=== PATIENT | male | born 1955 | race Caucasian/White ===

== ENCOUNTER 2023-11-08 06:29 | Inpatient (IN) ==
--- NOTE | 2023-11-08 06:35 | Emergency Department Note ---
Impression & Plan Small bowel obstruction ADMIT ED Provider Note HPI: History obtained from patient. The patient is a 68-year-old gentleman who presents the emergency department with a chief complaint of lower abdominal pain. Patient started with pain last night around midnight and it progressively got worse throughout the night. Patient states he has had nausea but no vomiting. Patient states the pain is in his lower abdomen and in particular more on the left lower quadrant. On arrival here to the ED the patient arrives via EMS and was given morphine en route with good improvement in his pain. He still does exhibit some mild distress secondary to abdominal pain on arrival. Patient denies any chest pain or shortness of breath. Patient is hemodynamically stable on arrival. ROS: - Per HPI Differential Diagnosis: Small bowel obstruction, kidney stone, diverticulitis flare, acute appendicitis, acute cholecystitis, ischemic colitis, amongst other potential pathologies. *Outpatient medications and allergy history reviewed. PE: General: Alert, mild distress secondary to pain HEENT: Normocephalic, trachea midline Eyes: Extraocular eye movement is intact, no scleral erythema Pulmonary: Clear to auscultation bilaterally, no wheezing Cardio: Regular rate and rhythm GI: Abdomen is with moderate distention, there is diffuse tenderness to palpation : No suprapubic tenderness MSK: No evidence of trauma or malformation of the extremities, no edema Skin: No evidence of rash Neuro: Alert, no focal deficits Psychiatric: Cooperative INDEPENDENT INTERPRETATIONS: awake overnight monitor: (As interpreted by myself): - An order was placed for continuous cardiac monitoring - Patient was noted to be in sinus rhythm with a rate of 60 EKG: (As interpreted by myself): Rate: 44 Rhythm: Sinus bradycardia Intervals: Within normal limits ST changes: No ST elevation Time: 0647 Interventions provided in ED: -IV fluid bolus, IV morphine, IV Zofran Medical Decision Making: IV was established and lab work obtained, patient was placed on awake overnight monitor. Lab work shows no leukocytosis, hemoglobin is normal, platelet count is normal, CMP does not show any evidence of any critical findings. Lactic acid is normal, troponin is negative, EKG shows sinus bradycardia without any acute ischemic changes. Urinalysis shows trace ketones. CT imaging of the abdomen pelvis was obtained and shows evidence of what appears to be a closed-loop small bowel obstruction. I discussed these findings with on-call general surgery, Gilda Cox PA-C, and the patient was evaluated at the bedside. Patient was evaluated at the bedside eventually by Dr. Solo of general surgery, he was admitted to the surgery service for definitive care. Consultants/Discussions held with other healthcare providers: -Dr. Solo, general surgery Disposition discussion held by myself with: -Patient and family at the bedside Diagnosis: 1. Small bowel obstruction, acute, closed-loop 2. Abdominal pain, acute 3. Ketonuria, acute, trace Disposition: Admission to general surgery González Clemens DO Emergency Medicine Past Med/Surg History Problem List (Updated 11/08/23 @ 15:14 by González Clemens DO) Small bowel obstruction (Acute) Social History Smoking Status: Former smoker Second Hand Exposure: Yes; Do You Dip or Chew Tobacco: No; Hx Alcohol Use: No Hx Substance Use: No Preferred Language: [place] Islander Communication Ability: Effective Sericulture Teacher Required: No Beliefs That Will Affect Care: None Current Living Situation: Spouse Feels Safe at Home: Yes Safety Concerns: Feels Safe At This Time Assistive Devices: Glasses Allergies Allergies Allergy/AdvReac Type Severity Reaction Status Date / Time No Known Allergies Allergy Unverified 11/08/23 11:31 Home Meds Home Medications Medication Instructions Recorded Confirmed multivitamin 1 tab PO DAILY 11/08/23 11/08/23 Results & Data (ED) Vital Signs Vital Signs - 24 hr 11/08/23 06:34 11/08/23 06:44 11/08/23 07:00 Temperature 36.6 C Temperature Source Oral Pulse Rate 52 L 50 L Pulse Rate [Apical] Pulse Rate [Finger] Pulse Rate from SpO2 Sensor Pulse Rhythm Regular Pulse Rhythm [Apical] Pulse Rhythm [Finger] Pulse Strength Normal Pulse Strength [Finger] Respiratory Rate 18 Respiratory Effort / Characteristics Non-Labored Spontaneous Respiratory Depth Normal Respiratory Pattern Regular Blood Pressure 122/72 123/68 Blood Pressure [Left Arm] Blood Pressure [Right Arm] Blood Pressure Mean 88 101 Blood Pressure Mean [Left Arm] Blood Pressure Mean [Right Arm] Blood Pressure Position Sitting Blood Pressure Position [Left Arm] Blood Pressure Position [Right Arm] Pulse Oximetry 95 Oxygen Delivery Method Room Air Oxygen Flow Rate Sepsis Recent Fever Within 48 Hours No Sepsis New/Unexplained Change in Mental Status N/A Sepsis Action Taken by Nursing No Action Required 11/08/23 07:03 11/08/23 07:18 11/08/23 07:31 Temperature Temperature Source Pulse Rate 48 L 49 L Pulse Rate [Apical] Pulse Rate [Finger] Pulse Rate from SpO2 Sensor 47 L 49 L Pulse Rhythm Pulse Rhythm [Apical] Pulse Rhythm [Finger] Pulse Strength Pulse Strength [Finger] Respiratory Rate 15 13 Respiratory Effort / Characteristics Respiratory Depth Respiratory Pattern Blood Pressure 150/75 H Blood Pressure [Left Arm] Blood Pressure [Right Arm] Blood Pressure Mean 89 Blood Pressure Mean [Left Arm] Blood Pressure Mean [Right Arm] Blood Pressure Position Blood Pressure Position [Left Arm] Blood Pressure Position [Right Arm] Pulse Oximetry 95 97 Oxygen Delivery Method Oxygen Flow Rate Sepsis Recent Fever Within 48 Hours Sepsis New/Unexplained Change in Mental Status Sepsis Action Taken by Nursing 11/08/23 07:39 11/08/23 08:00 11/08/23 08:00 Temperature Temperature Source Pulse Rate 47 L 52 L Pulse Rate [Apical] Pulse Rate [Finger] Pulse Rate from SpO2 Sensor 48 L 52 L Pulse Rhythm Pulse Rhythm [Apical] Pulse Rhythm [Finger] Pulse Strength Pulse Strength [Finger] Respiratory Rate 13 13 Respiratory Effort / Characteristics Respiratory Depth Respiratory Pattern Blood Pressure 116/55 L Blood Pressure [Left Arm] Blood Pressure [Right Arm] Blood Pressure Mean 85 Blood Pressure Mean [Left Arm] Blood Pressure Mean [Right Arm] Blood Pressure Position Blood Pressure Position [Left Arm] Blood Pressure Position [Right Arm] Pulse Oximetry 99 95 Oxygen Delivery Method Oxygen Flow Rate Sepsis Recent Fever Within 48 Hours Sepsis New/Unexplained Change in Mental Status Sepsis Action Taken by Nursing 11/08/23 08:30 11/08/23 08:30 11/08/23 09:00 Temperature Temperature Source Pulse Rate 51 L Pulse Rate [Apical] Pulse Rate [Finger] Pulse Rate from SpO2 Sensor 50 L Pulse Rhythm Pulse Rhythm [Apical] Pulse Rhythm [Finger] Pulse Strength Pulse Strength [Finger] Respiratory Rate 15 Respiratory Effort / Characteristics Respiratory Depth Respiratory Pattern Blood Pressure 132/63 146/72 H Blood Pressure [Left Arm] Blood Pressure [Right Arm] Blood Pressure Mean 102 76 Blood Pressure Mean [Left Arm] Blood Pressure Mean [Right Arm] Blood Pressure Position Blood Pressure Position [Left Arm] Blood Pressure Position [Right Arm] Pulse Oximetry 100 Oxygen Delivery Method Oxygen Flow Rate Sepsis Recent Fever Within 48 Hours Sepsis New/Unexplained Change in Mental Status Sepsis Action Taken by Nursing 11/08/23 09:00 11/08/23 09:45 11/08/23 10:00 Temperature Temperature Source Pulse Rate 52 L 49 L Pulse Rate [Apical] Pulse Rate [Finger] Pulse Rate from SpO2 Sensor Pulse Rhythm Pulse Rhythm [Apical] Pulse Rhythm [Finger] Pulse Strength Pulse Strength [Finger] Respiratory Rate 18 21 Respiratory Effort / Characteristics Respiratory Depth Respiratory Pattern Blood Pressure 130/64 Blood Pressure [Left Arm] Blood Pressure [Right Arm] Blood Pressure Mean 80 Blood Pressure Mean [Left Arm] Blood Pressure Mean [Right Arm] Blood Pressure Position Blood Pressure Position [Left Arm] Blood Pressure Position [Right Arm] Pulse Oximetry 82 L 77 L Oxygen Delivery Method Oxygen Flow Rate Sepsis Recent Fever Within 48 Hours Sepsis New/Unexplained Change in Mental Status Sepsis Action Taken by Nursing 11/08/23 10:00 11/08/23 10:30 11/08/23 10:30 Temperature Temperature Source Pulse Rate 48 L 61 Pulse Rate [Apical] Pulse Rate [Finger] Pulse Rate from SpO2 Sensor 50 L 61 Pulse Rhythm Pulse Rhythm [Apical] Pulse Rhythm [Finger] Pulse Strength Pulse Strength [Finger] Respiratory Rate Respiratory Effort / Characteristics Respiratory Depth Respiratory Pattern Blood Pressure 98/64 L Blood Pressure [Left Arm] Blood Pressure [Right Arm] Blood Pressure Mean 68 Blood Pressure Mean [Left Arm] Blood Pressure Mean [Right Arm] Blood Pressure Position Blood Pressure Position [Left Arm] Blood Pressure Position [Right Arm] Pulse Oximetry 100 96 Oxygen Delivery Method Oxygen Flow Rate Sepsis Recent Fever Within 48 Hours Sepsis New/Unexplained Change in Mental Status Sepsis Action Taken by Nursing 11/08/23 11:20 11/08/23 11:31 11/08/23 12:56 Temperature 36.5 C 36.1 C L Temperature Source Oral Temporal Artery Scan Pulse Rate Pulse Rate [Apical] 71 Pulse Rate [Finger] 49 L 49 L Pulse Rate from SpO2 Sensor Pulse Rhythm Pulse Rhythm [Apical] Regular Pulse Rhythm [Finger] Regular Regular Pulse Strength Pulse Strength [Finger] Normal Normal Respiratory Rate 18 18 14 Respiratory Effort / Characteristics Non-Labored Non-Labored Spontaneous Non-Labored Spontaneous Respiratory Depth Normal Normal Normal Respiratory Pattern Regular Regular Regular Blood Pressure Blood Pressure [Left Arm] 150/87 H Blood Pressure [Right Arm] 147/75 H 147/75 H Blood Pressure Mean Blood Pressure Mean [Left Arm] 108 Blood Pressure Mean [Right Arm] 99 99 Blood Pressure Position Blood Pressure Position [Left Arm] Semi-fowlers Blood Pressure Position [Right Arm] Lying Sitting Pulse Oximetry 94 94 100 Oxygen Delivery Method Room Air Room Air Oxymask Oxygen Flow Rate 2 Sepsis Recent Fever Within 48 Hours Sepsis New/Unexplained Change in Mental Status Sepsis Action Taken by Nursing Laboratory Data 11/08/23 06:35 11/08/23 06:35 Lab Results 11/08/23 11/08/23 11/08/23 Range/Units 06:35 06:45 08:35 WBC 7.05 (4.8-10.8) K/ul RBC 4.81 (4.70-6.10) M/uL Hgb 14.5 (14.0-18.0) g/dl Hct 42.9 (42.0-52.0) % MCV 89.2 (80.0-100.0) fL MCH 30.1 (25.0-34.0) pg MCHC 33.8 (32.0-36.0) g/dL RDW Std Deviation 39.9 (36.4-46.3) fL RDW Coeff of Anna 12.2 (11.5-14.5) % Plt Count 189 (130-400) K/uL MPV 9.7 (9.4-12.4) fL Immature Gran % (Auto) 0.4 % Neut % (Auto) 77.7 % Lymph % (Auto) 14.5 % Centre % (Auto) 6.4 % Eos % (Auto) 0.4 % Baso % (Auto) 0.6 % Neut # (Auto) 5.48 (1.40-6.50) K/uL Lymph # (Auto) 1.02 L (1.20-3.40) K/uL Centre # (Auto) 0.45 (0.11-0.59) K/uL Eos # (Auto) 0.03 (0.00-0.50) K/uL Baso # (Auto) 0.04 (0.00-0.20) K/uL Immature Gran # (Auto) 0.03 (0.01-0.20) K/uL PT 10.8 (9.0-12.0) Seconds INR 1.0 (0.9-1.1) Sodium 136 (136-145) mmol/L Potassium 3.8 (3.5-5.1) mmol/L Chloride 106 (98-107) mmol/L Carbon Dioxide 25 (21-32) mmol/L Anion Gap 5 (3-11) BUN 26 H (6-23) mg/dl Creatinine 0.84 (0.6-1.4) mg/dl Est Cr Clr Drug Dosing 70.5 ml/min Est GFR ( Amer) 104.3 ml/min Est GFR (Non-Af Amer) 90.0 ml/min BUN/Creatinine Ratio 31.0 H (10-20) Glucose 116 H (70-99(Fasting)) mg/dl Lactate 1.2 (0.4-2.0) mmol/L Calcium 8.6 (8.6-10.3) mg/dl Total Bilirubin 0.7 (0.2-1.0) mg/dl AST 26 (13-39) U/L ALT 17 (7-52) U/L Alkaline Phosphatase 63 (34-104) U/L Troponin I High Sens 3.8 (0-20) pg/ml Total Protein 6.8 (6.0-8.3) gm/dl Albumin 3.8 (3.4-5.0) gm/dl Globulin 3.0 (2.5-4.0) gm/dl Albumin/Globulin Ratio 1.3 (0.9-2) Lipase 17 (11-82) U/L Urine Color Yellow Urine Appearance Clear (Clear) Urine pH 8.0 H (4.5-7.5) Ur Specific [place] 1.013 (1.000-1.030) Urine Protein Negative (Negative) Urine Glucose (UA) Negative (Negative) Urine Ketones Trace H (Negative) Urine Blood Negative (Negative) Urine Nitrite Negative (Negative) Urine Bilirubin Negative (Negative) Urine Urobilinogen Negative (Negative) Ur Leukocyte Esterase Negative (Negative) Administered Medications Lactated Ringer's (Lr) 1,000 mls @ 125 mls/hr IV .Q8H ARPAN Stop: 12/08/23 14:06 Last Admin: 11/08/23 14:15 Dose: 125 mls/hr Documented By: ADRIEL Acetaminophen (Ofirmev) 1,000 mg in 100 mls @ 400 mls/hr IV Q8H ARPAN Stop: 11/11/23 14:06 Last Infusion: 11/08/23 14:31 Dose: Infused Documented By: Admin: 11/08/23 14:15 Dose: 400 mls/hr Documented By: LMM Discontinued Medications Bupivacaine HCl (Bupivacaine 0.5 % 5 Mg/1 Ml Mpf 30ml Vial) Confirm Administered Dose 30 ml .ROUTE .STK-MED ONE Stop: 11/08/23 10:41 Last Admin: 11/08/23 12:40 Dose: 30 ml Documented By: ROSALES Bupivacaine Liposome (Bupivacaine Liposome 1.3% 133 Mg/10 Ml Vial) 133 mg INFIL ONE ONE Stop: 11/08/23 12:46 Last Admin: 11/08/23 12:45 Dose: 133 mg Documented By: ROSALES Sodium Chloride (Nss) 500 mls @ 999 mls/hr IV .Q31M STA Stop: 11/08/23 07:03 Last Infusion: 11/08/23 07:30 Dose: Infused Documented By: Admin: 11/08/23 06:45 Dose: 999 mls/hr Documented By: ZEE Sodium Chloride (Nss) 1,000 mls @ 999 mls/hr IV .Q1H1M ONE Stop: 11/08/23 09:27 Last Infusion: 11/08/23 14:13 Dose: Infused Documented By: Admin: 11/08/23 08:37 Dose: 999 mls/hr Documented By: JOCELYNE Cefoxitin Sodium (Mefoxin) 2,000 mg in 60 mls @ 100 mls/hr IV NOW STA Stop: 11/08/23 11:28 Last Infusion: 11/08/23 14:12 Dose: Infused Documented By: Admin: 11/08/23 11:49 Dose: 100 mls/hr Documented By: FRANK Ioversol (Optiray 320 100ml) 94 ml IV ONCE ONE Stop: 11/08/23 07:45 Last Admin: 11/08/23 07:45 Dose: 94 ml Documented By: EULALIO Morphine Sulfate (Morphine Sulfate 4 Mg/Ml 1 Ml Carp\Vial) 4 mg IV NOW STA Stop: 11/08/23 07:24 Last Admin: 11/08/23 07:36 Dose: 4 mg Documented By: JOCELYNE Morphine Sulfate (Morphine Sulfate 4 Mg/Ml 1 Ml Carp\Vial) 4 mg IV NOW STA Stop: 11/08/23 08:40 Last Admin: 11/08/23 08:38 Dose: 4 mg Documented By: JOCELYNE Imaging Data Radiologist's Impression: Abdomen/Pelvis CT 11/08/23 06:[address] WITH IV CONTRAST CT DOSE: 550.5 mGy.cm HISTORY: LLQ pain TECHNIQUE: Multiaxial CT images of the abdomen and pelvis were performed following the use of intravenous contrast. A dose lowering technique was utilized adhering to the principles of ALARA. COMPARISON STUDY: None. FINDINGS: Mild dependent changes seen within the lung bases. No pneumoperitoneum. No pneumatosis. No acute fractures identified. A 7 mm hypodense lesion within the right hepatic dome is technically too small to characterize but favors a cyst. The gallbladder, pancreas, and left adrenal gland are unremarkable. There is an 8 mm hypodense right adrenal gland nodule. This is too small to characteristically favors an adenoma. There are few punctate calcified granulomas within the spleen. The right kidney enhances normally. There are few subcentimeter hypodense left renal lesions measuring up to 9 mm. These are technically too small to characterize but favor cysts. No hydronephrosis. The main portal vein is patent. There is a left retroaortic renal vein. Normal caliber abdominal aorta. No retroperitoneal or pelvic lymphadenopathy. Trace pelvic free fluid. The bladder is unremarkable. The prostate gland is mildly enlarged. [id number] fecal retention. Normal appendix. Multiple dilated gas and fluid-filled loops of small bowel in the mid to lower abdomen which measure up to 3.3 cm in diameter. There is a transition point within the left lower quadrant on image 210. Therefore, this is consistent with a small bowel obstruction. There may be a second transition point within the distended proximal loop of small bowel with surrounding mesenteric edema within the left lower quadrant. The second area of transition point is also seen on image 202 anteriorly. Therefore, this raises the possibility of a closed loop type obstruction. IMPRESSION: 1. Small bowel obstruction as described above. There appears to be both proximal and distal transition points within the dilated loops of small bowel at the left lower quadrant with surrounding mesenteric edema. Therefore, this is concerning for a closed loop type small bowel obstruction. Urgent surgical consultation recommended. 2. Additional findings as described above. ACT 112: Negative or not required by law. Electronically signed by: Nader Eason M.D. 11/08/2023 8:17 AM KUB X-Ray 11/08/23 10:37 KUB HISTORY: ng tube placement COMPARISON: None. FINDINGS: Dilated loops of small bowel consistent with the patient's known small bowel obstruction. Contrast within the urinary system. Nasogastric tube terminates in the distal esophagus. This should be advanced by approximately 10 cm. No renal calculi. No ureteral calculi. No pneumoperitoneum or pneumatosis. IMPRESSION: 1. Nasogastric tube terminates in the distal esophagus. This should be advanced by approximately 10 cm. 2. Small bowel structure pattern again noted. ACT 112: Negative or not required by law. Electronically signed by: Nader Eason M.D. 11/08/2023 11:50 AM Discharge Plan Visit Data Chief Complaint: Abdominal Pain Stated Complaint: Abdominal Pain ED Provider: González Clemens Discharge Problem: Small bowel obstruction Patient Disposition: Admitted As Inpatient Discharge Instructions Interventions: ED Discharge Assessment Last Done: 11/08/23 14:01
[2023-11-08] MEDS: SODIUM CHLORIDE 0.9% 500 ML IV STA (06:45)
[2023-11-08 06:59] LABS: Basophils # (auto) 0.04 K/uL (0.00-0.20); Basophils % (auto) 0.6 %; Eosinophils # (auto) 0.03 K/uL (0.00-0.50); Eosinophils % (auto) 0.4 %; Hematocrit (blood only) 42.9 % (42.0-52.0); Hemoglobin 14.5 g/dl (14.0-18.0); Immature Granulocytes # (auto) 0.03 K/uL (0.01-0.20); Immature Granulocytes % (auto) 0.4 %; Lymphocytes # (auto) 1.02 K/uL (1.20-3.40); Lymphocytes % (auto) 14.5 %; Mean Corpuscular Hemoglobin 30.1 pg (25.0-34.0); Mean Corpuscular Hgb Conc 33.8 g/dL (32.0-36.0); Mean Corpuscular Volume 89.2 fL (80.0-100.0); Mean Platelet Volume 9.7 fL (9.4-12.4); Monocytes # (auto) 0.45 K/uL (0.11-0.59); Monocytes % (auto) 6.4 %; Neutrophils # (auto) 5.48 K/uL (1.40-6.50); Neutrophils % (auto) 77.7 %; Platelet Count 189 K/uL (130-400); Prothrombin Time 10.8 Seconds (9.0-12.0); RDW Coefficient of Variation 12.2 % (11.5-14.5); RDW Standard Deviation 39.9 fL (36.4-46.3); Red Blood Count 4.81 M/uL (4.70-6.10); White Blood Count 7.05 K/ul (4.8-10.8)
[2023-11-08 07:12] LABS: Albumin Globulin Ratio 1.3 (0.9-2); Albumin Level 3.8 gm/dl (3.4-5.0); Bilirubin,Total 0.7 mg/dl (0.2-1.0); Calcium 8.6 mg/dl (8.6-10.3); Creatinine Clr Calc Pharmacy 70.5 ml/min; Est GFR (African American) 104.3 ml/min; Potassium 3.8 mmol/L (3.5-5.1); Total Protein 6.8 gm/dl (6.0-8.3)
[2023-11-08 07:16] LABS: Troponin I High Sensitivity 3.8 pg/ml (0-20)
[2023-11-08] MEDS: MoRPHine SULFATE 4 MG/ML 1 ML CARP\\VIAL IV STA ×2 (07:36→08:38)
[2023-11-08] MEDS: OPTIRAY 320 100ml IV ONE (07:45)
[2023-11-08 08:06] LABS: Appearance Urine Clear (Clear); Bilirubin Urine Negative (Negative); Blood Urine Negative (Negative); Color Urine Yellow; Glucose Urine UA Negative (Negative); Ketones Urine Trace (Negative); Leukocyte Esterase Urine Negative (Negative); Nitrite Urine Negative (Negative); Protein Urine Negative (Negative); Specific Gravity Urine 1.013 (1.000-1.030); Urobilinogen Urine Negative (Negative)
--- NOTE | 2023-11-08 08:19 | CT Scan Report ---
ABDOMEN AND PELVIS CT WITH IV CONTRAST CT DOSE: 550.5 mGy.cm HISTORY: LLQ pain TECHNIQUE: Multiaxial CT images of the abdomen and pelvis were performed following the use of intrave nous contrast. A dose lowering technique was utilized adhering to the principles of ALARA. COMPARISON STUDY: None. FINDINGS: Mild dependent changes seen within the lung bases. No pneumoperitoneum. No pneumatosis. No acute fractures identified. A 7 mm hypodense lesion within the right hepatic dome is technically too small to characterize but favors a cyst. The gallbladder, pancreas, and left adrenal gland are unrema rkable. There is an 8 mm hypodense right adrenal gland nodule. This is too small to characteristicall y favors an adenoma. There are few punctate calcified granulomas within the spleen. The right kidney enhances normally. There are few subcentimeter hypodense left renal lesions measuring up to 9 mm. The se are technically too small to characterize but favor cysts. No hydronephrosis. The main portal vein is patent. There is a left retroaortic renal vein. Normal caliber abdominal aorta. No retroperitonea l or pelvic lymphadenopathy. Trace pelvic free fluid. The bladder is unremarkable. The prostate gland is mildly enlarged. Lrkr-[id number] fecal retention. Normal appendix. Multiple dilated gas and flui d-filled loops of small bowel in the mid to lower abdomen which measure up to 3.3 cm in diameter. The re is a transition point within the left lower quadrant on image 210. Therefore, this is consistent w ith a small bowel obstruction. There may be a second transition point within the distended proximal l oop of small bowel with surrounding mesenteric edema within the left lower quadrant. The second area of transition point is also seen on image 202 anteriorly. Therefore, this raises the possibility of a closed loop type obstruction. IMPRESSION: 1. Small bowel obstruction as described above. There appears to be both proximal and distal transitio n points within the dilated loops of small bowel at the left lower quadrant with surrounding mesenter ic edema. Therefore, this is concerning for a closed loop type small bowel obstruction. Urgent surgic al consultation recommended. 2. Additional findings as described above. ACT 112: Negative or not required by law. Electronically signed by: Nader Eason M.D. 11/08/2023 8:17 AM
[2023-11-08] MEDS: SODIUM CHLORIDE 0.9% 1,000 ML IV ONE (08:37)
--- NOTE | 2023-11-08 09:36 | History & Physical Report ---
Date of Service November 08, 2023 Assessment & Plan (1) Small bowel obstruction: Plan: This is a 68y janes male with apparently no significant PMH who presents to the [facility] ED on 11/07 with complaints of acute onset severe abdominal pain. His pain started last night around midnight in generalized abdomen. This was associated with nausea, no vomiting. Due to the severity of his pain he presented to the ER for evaluation. A CT a/p was performed that revealed small bowel obstruction where there appears to be both proximal and distal transition points within the dilated loops of small bowel at the left lower quadrant with surrounding mesenteric edema. Therefore, this is concerning for a closed loop type small bowel obstruction. The patient denies any prior abdominal surgical history. He is not passing flatus. Denies anything to eat recently outside of some sips of water. In the ER his vital signs are stable, HRs 50s, BP stable, on room air. Labs show WBC 7, Hbg 14, lactate 1.2, Cr 0.8. On exam patient appear uncomfortable secondary to pain. Abdomen is non distended with generalized tenderness to palpation worse in the mid abdominal region. Emesis bag at bedside. Plan to keep patient NPO with IVF and IV pain medication. Will discuss with surgeon possibility of surgical intervention vs consideration for conservative management with bowel rest/pain&nausea control. Will follow up in short order for further recommendations. History of Present Illness Primary Care Provider: NO PCP This is a 68y janes male with apparently no significant PMH who presents to the [facility] ED on 11/07 with complaints of acute onset severe abdominal pain. His pain started last night around midnight in generalized abdomen. This was associated with nausea, no vomiting. Due to the severity of his pain, which he rated a 10/10 in severity at its worst, he presented to the ER for evaluation. A CT a/p was performed that revealed small bowel obstruction where there appears to be b oth proximal and distal transition points within the dilated loops of small bowel at the left lower quadrant with surrounding mesenteric edema. Therefore, this is concerning for a closed loop type small bowel obstruction. The patient denies any prior abdominal surgical history. He is not passing flatus. Denies anything to eat recently outside of some sips of water. BMs normally regular. Allergies Allergy/AdvReac Type Severity Reaction Status Date / Time No Known Allergies Allergy Unverified 11/08/23 10:05 Home Medications Medication Instructions Recorded Confirmed Type multivitamin 1 tab PO DAILY 11/08/23 11/08/23 History Past Med/Surg History Problem List (Updated 11/08/23 @ 09:31 by Gilda Cox PA-C) Small bowel obstruction Social History Smoking Status: Never smoker Preferred Language: Italian Feels Safe at Home: Yes Review of Systems Constitutional: no fever and no chills Respiratory: no dyspnea Cardiovascular: no chest pain Gastrointestinal: + abdominal pain and + nausea; no vomiti ng Physical Exam Physical Exam: awake, alert, appears uncomfortable secondary to pain, Constitutional: well nourished; + uncomfortable Respiratory: normal respiratory effort Gastrointestinal (Abdomen): Inspection/Auscultation: abdomen not distended Percussion/Palpation: + abdomen tender (generalized discomfort, worse across mid abdomen) and + guarding Results & Data Results & Data Vital Signs (Past 12 Hours) Vital Signs Temp Pulse Resp BP Pulse Ox O2 Del Method 11/08/23 08:30 51 L 15 100 11/08/23 08:30 132/63 11/08/23 08:00 52 L 13 95 11/08/23 08:00 116/55 L 11/08/23 07:39 47 L 13 99 11/08/23 07:31 150/75 H 11/08/23 07:18 49 L 13 97 11/08/23 07:03 48 L 15 95 11/08/23 07:00 123/68 11/08/23 06:44 50 L 11/08/23 06:34 97.9 F 52 L 18 122/72 95 Room Air Diagnostic Findings ABDOMEN AND PELVIS CT WITH IV CONTRAST CT DOSE: 550.5 mGy.cm HISTORY: LLQ pain TECHNIQUE: Multiaxial CT images of the abdomen and pelvis were performed following the use of intravenous contrast. A dose lowering technique was utilized adhering to the principles of ALARA. COMPARISON STUDY: None. FINDINGS: Mild dependent changes seen within the lung bases. No pneumoperitoneum. No pneumatosis. No acute fractures identified. A 7 mm hypodense lesion within the right hepatic dome is technically too small to characterize but favors a cyst. The gallbladder, pancreas, and left adrenal gland are unremarkable. There is an 8 mm hypodense right adrenal gland nodule. This is too small to characteristically favors an adenoma. There are few punctate calcified granulomas within the spleen. The right kidney enhances normally. There are few subcentimeter hypodense left renal lesions measuring up to 9 mm. These are technically too small to characterize but favor cysts. No hydronephrosis. The main portal vein is patent. There is a left retroaortic renal vein. Normal caliber abdominal aorta. No retroperitoneal or pelvic lympha denopathy. Trace pelvic free fluid. The bladder is unremarkable. The prostate gland is mildly enlarged. [id number] fecal retention. Normal appendix. Multiple dilated gas and fluid-filled loops of small bowel in the mid to lower abdomen which measure up to 3.3 cm in diameter. There is a transition point within the left lower quadrant on image 210. Therefore, this is consistent with a small bowel obstruction. There may be a second transition point within the distended proximal loop of small bowel with surrounding mesenteric edema within the left lower quadrant. The second area of transition point is also seen on image 202 anteriorly. Therefore, this raises the possibility of a closed loop type obstruction. IMPRESSION: 1. Small bowel obstruction as described above. There appears to be both proximal and distal transition points within the dilated loops of small bowel at the left lower quadrant with surrounding mesenteric edema. Therefore, this is concerning for a closed loop type small bowel obstruction. Urgent surgical consultation recommended. 2. Additional findings as described above. ACT 112: Negative or not required by law Electronically signed by: Nader Eason M.D. 11/08/2023 8:17 AM Supervising Physician Co-Signing Physician Notes Patient seen and examined, labs and imaging reviewed, agree with above. Sudden onset abdominal pain overnight. No prior abdominal surgery, trauma, or severe infections, but states he had a blockage in 1984. On exam afebrile stable vitals, abdomen tender to palpation diffusely, no guarding. Labs unremarkable. CT personally viewed and interpreted and agree with the assessment for possible closed-loop obstruction with edema of the bowel. Given his findings would recommend diagnostic laparoscopy. Plan for diagnostic laparoscopy, possible open, possible bowel resection Risk discussed to include but not limited to bleeding, infection, conversion open, damage to surrounding structures, need for future more extensive surgery, and the risk of anesthesia Appreciate medicine consultation as patient has not seen a provider in many years PG Care Time/CCT Total # of Minutes Spent Total Time Spent with Patient: Total time spent is greater than 50% in coordination of care (as documented) at patient's floor/unit and/or counseling patient: Coding Level of Care Code 34464 INT INP/OBS CARE 2MIN Diagnoses Small bowel obstruction K56.609
--- NOTE | 2023-11-08 10:34 | Hospitalist Consultation ---
Date of Consultation November 08, 2023 Assessment & Plan (1) Small bowel obstruction: Worsening periumbilical abdominal pain that developed around midnight on 11/06 A/P CT on arrival revealed a small bowel obstruction concerning for closed loop General Surgery consulted with plan to take the patient to the OR on 11/07 No prior abdominal surgeries or infections No recent injuries or trauma to the abdomen or pelvis No leukocytosis; afebrile Patient does not take any medications on a regular basis Revised cardiac risk index: 0 Pain control, fluid maintenance, DVT PPx, and perioperative antibiotics per the primary team Plan Agree with current medical management. [facility]: [facility] Plan is to take patient to OR on 11/07 and re-assess as needed/ Thank you for allowing us to precipitate in the care of this patient; please reach out with any questions or concerns. Medicine will sign off at this time. Supervising Physician Co-Signing Physician Notes I personally saw and examined the patient. I independently reviewed the labs, EKG, imaging, problem list, medication list, past medical history. I verified all good points and agree with Nader Caputo PA-C with the following exceptions and/or additions: No known medical problems or medications. Good baseline without any shortness of breath or chest pain on exertion. EKG with sinus bradycardia on admission but now RRR. HS RRR, no murmurs, Chest CTAB, Abdo distended, NG tube in place. No anticipated or current medical needs. We will sign off at this time. Please reach out to the medicine attending simulation engineer for any questions or further review of the patient if felt to be necessary. History of Present Illness Reason for Consultation: Medical management Requesting Physician: Dr. Austin Solo Attending Physician: Dr. Austin Solo History of Present Illness Parth is a pleasant 68-year-old male with unknown PMH. He presented for periumbilical abdominal pain that developed around midnight on 11/06. He describes the pain as intermittent, and worsening. He rates it 5/10 at present after receiving pain medicine in the ED; 10/10 at worst. He did not take any pain medicine prior to coming in today ED. No food since last night. No radiation of pain to the back, chest wall, or down the legs. He reports that sitting upright exacerbates the pain. Last BM was yesterday. He is unsure if he is still passing gas. Patient does not take medicine on a daily basis. No prior abdominal surgeries. He denies history of a small bowel obstruction, but his at the bedside does report that he had a bowel blockage or "congestion" back in 1984 that resolved without any sort of surgical intervention. No PMH of CHF, DM, GA, CVA, or HTN. No prior history of similar episodes of abdominal pain. No recent injuries or trauma to the abdomen or pelvis. He denies history of colonoscopy. No prior abdominal infections. He reports he has not seen a doctor in a very long time. He reports he has good exercise tolerance, and has no dyspnea on exertion when going up steps. No recent changes in exercise tolerance or chest pain with exertion. He denies smoking, tobacco use, or alcohol use. Patient reports he is amenable to surgery at time of consult. Patient's (Gilda) and eldest son (Jaren) are at the bedside and provide additional history. Patient is mildly hypotensive at 98/64 at time of consult; vitals otherwise stable. ED course: NSS 1000mL IV x 2 Morphine sulfate 4mg IV x 2 ROS: Patient endorses worsening umbilical abdominal pain. Patient denies fever, chills, night-sweats, chest pain, chest palpitations, SOB at rest or with exertion, cough, N/V/D, changes in urinary/bowel habits, or numbness/tingling in the arms or legs. Allergies Allergy/AdvReac Type Severity Reaction Status Date / Time No Known Allergies Allergy Unverified 11/08/23 11:31 Home Medications Medication Instructions Recorded Confirmed Type multivitamin 1 tab PO DAILY 11/08/23 11/08/23 History Patient History Social History Smoking Status: Former smoker Second Hand Exposure: Yes; Do You Dip or Chew Tobacco: No; Hx Alcohol Use: No Hx Substance Use: No Preferred Language: Wallisian Communication Ability: Effective Hedge Fund Accountant Required: No Beliefs That Will Affect Care: None Current Living Situation: Spouse Feels Safe at Home: Yes Safety Concerns: Feels Safe At This Time Assistive Devices: Glasses Review of Systems Review of Systems: See HPI above Physical Exam Physical Exam: General: no acute distress; lethargic; pleasant affect; NG tube in place and draining clear fluid; non-toxic appearing; frail appearing; cooperative; SpO2 96% on RA HEENT: normocephalic, atraumatic; no scleral icterus; PERRLA; vision and hearing grossly intact Neck: supple; no lymphadenopathy; trachea midline Skin: warm, dry without signs of tenting; no cyanosis; no rashes, bruising, lesions, or erythema noted CV: chest wall NTP; RRR; S1/S2 normal; no murmurs/rubs/gallops; pulses intact and symmetric at radial, DP, and PT Lungs: no acute respiratory distress; symmetrical chest wall expansion; clear breath sounds across all lung [place] w/o adventitious sounds; no wheezing ABD: Soft, mildly TTP in all 4 quadrants; BS present; no rebound/guarding; no distention; no rashes or bruising on the abdomen or flanks bilaterally MSK: no tics or fasciculations; no edema noted in the LEs b/l, nonerythematous Neuro: A&Ox3; normal mood and affect; fluent speech; no focal deficits; sensation grossly intact and symmetric in the LEs b/l Results & Data Results & Data Vital Signs (Past 12 Hours) Vital Signs Temp Pulse Resp BP Pulse Ox O2 Del Method 11/08/23 08:30 51 L 15 100 11/08/23 08:30 132/63 11/08/23 08:00 52 L 13 95 11/08/23 08:00 116/55 L 11/08/23 07:39 47 L 13 99 11/08/23 07:31 150/75 H 11/08/23 07:18 49 L 13 97 11/08/23 07:03 48 L 15 95 11/08/23 07:00 123/68 11/08/23 06:44 50 L 11/08/23 06:34 36.6 C 52 L 18 122/72 95 Room Air Laboratory Results Abnormal lab results 11/08/23 11/08/23 Range/Units 06:35 06:45 Lymph # (Auto) 1.02 L (1.20-3.40) K/uL BUN 26 H (6-23) mg/dl BUN/Creatinine Ratio 31.0 H (10-20) Glucose 116 H (70-99(Fasting)) mg/dl Urine pH 8.0 H (4.5-7.5) Urine Ketones Trace H (Negative) Diagnostic Findings Abdomen/Pelvis CT 11/08/23 06:[address] WITH IV CONTRAST CT DOSE: 550.5 mGy.cm HISTORY: LLQ pain TECHNIQUE: Multiaxial CT images of the abdomen and pelvis were performed following the use of intravenous contrast. A dose lowering technique was utilized adhering to the principles of ALARA. COMPARISON STUDY: None. FINDINGS: Mild dependent changes seen within the lung bases. No pneumoperitoneum. No pneumatosis. No acute fractures identified. A 7 mm hypodense lesion within the right hepatic dome is technically too small to characterize but favors a cyst. The gallbladder, pancreas, and left adrenal gland are unremarkable. There is an 8 mm hypodense right adrenal gland nodule. This is too small to characteristically favors an adenoma. There are few punctate calcified granulomas within the spleen. The right kidney enhances normally. There are few subcentimeter hypodense left renal lesions measuring up to 9 mm. These are technically too small to characterize but favor cysts. No hydronephrosis. The main portal vein is patent. There is a left retroaortic renal vein. Normal caliber abdominal aorta. No retroperitoneal or pelvic lymphadenopathy. Trace pelvic free fluid. The bladder is unremarkable. The prostate gland is mildly enlarged. [id number] fecal retention. Normal appendix. Multiple dilated gas and fluid-filled loops of small bowel in the mid to lower abdomen which measure up to 3.3 cm in diameter. There is a transition point within the left lower quadrant on image 210. Therefore, this is consistent with a small bowel obstruction. There may be a second transition point within the distended proximal loop of small bowel with surrounding mesenteric edema within the left lower quadrant. The second area of transition point is also seen on image 202 anteriorly. Therefore, this raises the possibility of a closed loop type obstruction. IMPRESSION: 1. Small bowel obstruction as described above. There appears to be both proximal and distal transition points within the dilated loops of small bowel at the left lower quadrant with surrounding mesenteric edema. Therefore, this is concerning for a closed loop type small bowel obstruction. Urgent surgical consultation recommended. 2. Additional findings as described above. ACT 112: Negative or not required by law. Electronically signed by: Nader Eason M.D. 11/08/2023 8:17 AM ECG Additional Comments: ECG revealed marked sinus bradycardia at 44 bpm; QTc 376 No prior EKGs for comparison PG Care Time/CCT Total # of Minutes Spent Total Time Spent with Patient: Total time spent is greater than 50% in coordination of care (as documented) at patient's floor/unit and/or counseling patient: [place] [address] IN/OBS CONSULT LVL 3,45M Patient Type New Medical Decision Making Moderate Complexity Diagnoses Small bowel obstruction K56.609
[2023-11-08] MEDS ORDERED: PROPOFOL IV EMULSION 10 MG/ML 20 ML VIAL IV ONE (10:38)
[2023-11-08] MEDS ORDERED: ROCURONIUM BROMIDE 10 MG/ML 5 ML VIAL IV ONE (10:38)
[2023-11-08] MEDS ORDERED: ONDANSETRON INJ 2 MG/ML 2 ML VIAL ONE (10:38)
[2023-11-08] MEDS ORDERED: LIDOCAINE 2% 2 ML VIAL/AMP(20MG/ML) INFIL ONE (10:38)
[2023-11-08] MEDS ORDERED: MIDAZOLAM HCL 1 MG/ML 2ML VIAL ONE (10:38)
[2023-11-08] MEDS ORDERED: fentaNYL citrate PF 100 MCG/2 ML VIAL ONE (10:38)
[2023-11-08] MEDS ORDERED: DEXAMETHASONE SOD INJ 4 MG/ML VIAL ONE (10:41)
--- NOTE | 2023-11-08 11:48 | Anesthesiology Consultation ---
Date of Service November 08, 2023 Assessment & Plan ASA ASA1E Proposed Anesthesia Anesthesia Type: General Risk / Benefits Reviewed With: PT / POA / Parent / Guardian, Accepts Plan and Informed Consent Obtained History Surgery Operation Date: 11/08/23 08:20 Proposed Procedures p Diagnostic Laparoscopy, Possible Open, Possible Bowel Resection - Austin Solo DO, FACS Height/Weight Height: 5 ft 4 in Weight: 68.6 kg Allergies Allergy/AdvReac Type Severity Reaction Status Date / Time No Known Allergies Allergy Unverified 11/08/23 11:31 Medications Home Medications Medication Instructions Recorded Confirmed Last Taken multivitamin 1 tab PO DAILY 11/08/23 11/08/23 11/07/23 NPO Date Last Intake of Fluids: 11/07/23 Time Last Intake of Fluids: 21:00 Date Last Intake of Solids: 11/07/23 Time Last Intake of Solids: 16:00 Exercise / Class Metabolic Activity II 4-5 Yardwork/Stairs/Walk up hill Past Anesthesia History No Hx of Anesthesia Complications and No Family Hx of Anesthesia Complications History of PONV No Hx of PONV and No Hx of Motion Sickness Social History Smoking Status: Former smoker Do You Dip or Chew Tobacco: No Hx Alcohol Use: No Hx Substance Use: No Review of Systems denies fever/cough/ colds/ chest pain/ SOB/ ELY denies ELY Physical Exam Vital Signs Last Vital Signs Temp 36.5 C 11/08/23 11:31 Pulse 49 L 11/08/23 11:31 Resp 18 11/08/23 11:31 BP 147/75 H 11/08/23 11:31 Pulse Ox 94 11/08/23 11:31 O2 Del Method Room Air 11/08/23 11:31 ENMT Mouth: no TMJ abnormality and no dentition abnormality Thyromental Distance: > or= 3.5 Finger Breadths Mallampati Class: II Neck + facial hair; neck extension not limited Respiratory normal respiratory effort; no respiratory distress Auscultation: lungs clear to auscultation bilaterally Cardiovascular Rate/Rhythm: regular rate and regular rhythm Neurologic moves all extremities Psychiatric Orientation: alert and oriented x 3 Testing Laboratory Results 11/08/23 06:35 11/08/23 06:35 PT 10.8 Seconds (9.0-12.0) 11/08/23 06:35 INR 1.0 (0.9-1.1) 11/08/23 06:35 Urine Color Yellow 11/08/23 06:45 Urine Appearance Clear (Clear) 11/08/23 06:45 Urine pH 8.0 (4.5-7.5) H 11/08/23 06:45 Ur Specific [place] 1.013 (1.000-1.030) 11/08/23 06:45 Urine Protein Negative (Negative) 11/08/23 06:45 Urine Glucose (UA) Negative (Negative) 11/08/23 06:45 Urine Ketones Trace (Negative) H 11/08/23 06:45 Urine Nitrite Negative (Negative) 11/08/23 06:45 Ur Leukocyte Esterase Negative (Negative) 11/08/23 06:45
[2023-11-08] MEDS: cefOXitin 2,000 MG/60 ML BAG IV STA (11:49)
--- NOTE | 2023-11-08 11:52 | XRay Report ---
KUB HISTORY: ng tube placement COMPARISON: None. FINDINGS: Dilated loops of small bowel consistent with the patient's known small bowel obstruction. C ontrast within the urinary system. Nasogastric tube terminates in the distal esophagus. This should b e advanced by approximately 10 cm. No renal calculi. No ureteral calculi. No pneumoperitoneum or pne umatosis. IMPRESSION: 1. Nasogastric tube terminates in the distal esophagus. This should be advanced by approximately 10 c m. 2. Small bowel structure pattern again noted. ACT 112: Negative or not required by law. Electronically signed by: Nader Eason M.D. 11/08/2023 11:50 AM
[2023-11-08] MEDS: BUPIVACAINE 0.5 % 5 MG/1 ML MPF 30ML VIAL ONE (12:40)
[2023-11-08] MEDS ORDERED: SUGAMMADEX SODIUM 200 MG/2 ML VIAL IV ONE (12:40)
[2023-11-08] MEDS: BUPIVACAINE LIPOSOME 1.3% 133 MG/10 ML VIAL INFIL ONE (12:45)
--- NOTE | 2023-11-08 12:49 | Operative Report ---
PG Post Operative Report Pre & Post Diagnosis Operation Date: 11/08/23 08:20 Pre-Op Diagnosis: Abdominal Pain, possible closed-loop small bowel obstruction Post-Op Diagnosis: Abdominal Pain, small bowel obstruction secondary to adhesions I identified the patient and participated in the time-out.: Yes Procedure Operation Date: 11/08/23 08:20 Actual Procedures p Diagnostic Laparoscopy(Not Applicable) - Austin Solo DO, FACS Surgeon Austin Solo DO, SWATHI Rn Chronic Gilda Cox Estimated Blood Loss 3 Findings Consistent with Post-Op Diagnosis Diagnostic laparoscopy performed. Single adhesion in left mid abdomen causing partial small bowel obstruction. This was secondary to inflamed epiploica from the descending colon. Bowel run from ligament of Treitz to terminal ileum, no other adhesions or abnormalities present. Some reactive fluid in the pelvis, no other abnormalities within the 4 quadrants of the abdomen. Specimens None Anesthesia Type General Complications none Disposition Accompanied Patient To Recovery: No Disposition: Recovery Room Indications 68-year-old [facility] male presented with abdominal pain. Physical exam and CT concerning for closed-loop small bowel obstruction, plan for diagnostic laparoscopy, possible open, possible bowel resection. The risks of the procedure were discussed, all questions were answered, and the patient agreed to proceed with surgery as planned. Description of Procedure The patient was properly identified, consented, and taken to the operating room where he was placed in the supine position. General endotracheal anesthesia was induced. A pineda catheter, an NG tube, SCDs and a safety belt were placed. Preoperative antibiotics were administered. The patient's abdomen was prepped and draped in the standard sterile fashion. Surgical timeout was performed and all parties were in agreement that this was the correct patient and procedure to be performed and we continued as planned. And incision was made in the right upper quadrant and the Veress needle was inserted. Saline drop test confirmed entry into the peritoneum. The abdomen was insufflated with carbon dioxide which the patient tolerated without incident. The abdomen was then entered using the Optiview technique and a 5 mm trocar. The laparoscope was inserted and no damage from initial trocar or Veress needle placement was noted. There was dilated proximal small bowel and decompressed distal bowel, no evidence of overt ischemia. No other gross abnormalities were noted within the 4 quadrants of the abdomen. 5 mm ports were then placed along the right side of the abdomen. The abdomen was explored. We were able to identify the transition point between the dilated small bowel and the decompressed small bowel. This was secondary to one adhesion that was causing a partial obstruction. This appeared to be emanating from an inflamed epiploica from the descending colon. Grasper was able to be placed between the bowel and the adhesion, and this was lysed. I then ran the small bowel from the ligament of Treitz all the way to the terminal ileum. There was no other additional adhesions and no other abnormalities. The bowel was healthy with no evidence of ischemia. There was no evidence of closed-loop obstruction. The bowel appeared to be peristalsing well. The courtney lucila of the abdomen was explored with the laparoscope and some reactive fluid was suctioned out of the pelvis. The gallbladder and appendix appeared normal. The colon appeared normal. The NG tube was confirmed within the stomach. Hemostasis was confirmed and the abdomen was irrigated. 5 mm trochars were removed under direct visualization and the abdomen was allowed to collapse. The skin of all ports was closed with 4-0 Monocryl subcuticular sutures. Dermabond was placed over the wounds. The patient was extubated in the operating room and taken to the PACU where he recovered without apparent incident. All sponge, instrument and needle counts were correct at the conclusion of the procedure. The patient tolerated the procedure well. The physicians emergency room physician assistant was present and scrubbed for the entire to the case. She was critical in positioning the patient, prepping and draping, retraction and exposure, driving the laparoscope, closure of the incisions, placement of the dressings. I attest to the content of the Intraoperative Record and any orders documented therein. Any exceptions are noted below.
--- NOTE | 2023-11-08 13:38 | Anesthesiology Progress Note ---
Date of Service November 08, 2023 Anesthesia Post Procedure Vital Signs Vital Signs: Temp Pulse Pulse Pulse Resp BP BP 11/08/23 13:25 55 L 14 138/80 11/08/23 13:15 60 12 147/81 H 11/08/23 13:05 60 13 138/81 11/08/23 12:56 36.1 C L 71 14 150/87 H 11/08/23 11:31 36.5 C 49 L 18 11/08/23 11:20 49 L 18 11/08/23 10:30 61 11/08/23 10:30 98/64 L 11/08/23 10:00 48 L 11/08/23 10:00 130/64 11/08/23 09:45 49 L 21 11/08/23 09:00 52 L 18 11/08/23 09:00 146/72 H 11/08/23 08:30 51 L 15 11/08/23 08:30 132/63 11/08/23 08:00 52 L 13 11/08/23 08:00 116/55 L 11/08/23 07:39 47 L 13 11/08/23 07:31 150/75 H 11/08/23 07:18 49 L 13 11/08/23 07:03 48 L 15 11/08/23 07:00 123/68 11/08/23 06:44 50 L 11/08/23 06:34 36.6 C 52 L 18 122/72 BP Pulse Ox O2 Del Method O2 Flow Rate 11/08/23 13:25 100 Oxymask 2 11/08/23 13:15 98 Oxymask 2 11/08/23 13:05 100 Oxymask 2 11/08/23 12:56 100 Oxymask 2 11/08/23 11:31 147/75 H 94 Room Air 11/08/23 11:20 147/75 H 94 Room Air 11/08/23 10:30 96 11/08/23 10:30 11/08/23 10:00 100 11/08/23 10:00 11/08/23 09:45 77 L 11/08/23 09:00 82 L 11/08/23 09:00 11/08/23 08:30 100 11/08/23 08:30 11/08/23 08:00 95 11/08/23 08:00 11/08/23 07:39 99 11/08/23 07:31 11/08/23 07:18 97 11/08/23 07:03 95 11/08/23 07:00 11/08/23 06:44 11/08/23 06:34 95 Room Air Pain Intensity Abdomen: Pain Intensity: 6 Transfer of Care Handoff Completed per policy Notes Mental Status: alert / awake / arousable and participated in evaluation Patient Amnestic to Procedure: Yes Nausea / Vomiting: adequately controlled Pain: adequately controlled Airway Patency, RR, SpO2: stable & adequate BP & HR: stable & adequate Hydration State: stable & adequate Anesthetic Complications: no major complications apparent and Pt Satisfied with anesthetic care
--- NOTE | 2023-11-08 14:04 | XRay Report ---
KUB CLINICAL HISTORY: eval NGT placement COMPARISON STUDY: CT of the abdomen and pelvis performed earlier today. FINDINGS: Note is made of contrast within the bladder and collecting systems from recent contrast-enh anced CT. Tip of nasogastric tube is within the proximal body of the stomach. Sidehole of the nasogas tric tube is at the GE junction. Several loops of mildly dilated small bowel are again noted. IMPRESSION: Tip of nasogastric tube within the body of the stomach with sidehole at the GE junction. The tube could be advanced an additional 3 cm. ACT 112: Negative or not required by law. Electronically signed by: Duarte Ward M.D. 11/08/2023 2:03 PM
[2023-11-08] MEDS ORDERED: MoRPHine SULFATE 4 MG/ML 1 ML CARP\\VIAL IV PRN (14:07)
[2023-11-08] MEDS ORDERED: ONDANSETRON INJ 2 MG/ML 2 ML VIAL IV PRN (14:07)
[2023-11-08] MEDS ORDERED: MoRPHine SULFATE 2 MG/ML CARP IV PRN (14:07)
[2023-11-08] MEDS: LACTATED RINGER'S 1,000 ML IV SCH (14:15)
[2023-11-08] MEDS: ACETAMINOPHEN 1,000 MG/100 ML VIAL IV SCH (14:15)
[2023-11-09 00:30] VITALS: RESP 16
[2023-11-09 06:14] LABS: Basophils # (auto) 0.03 K/uL (0.00-0.20); Basophils % (auto) 0.3 %; Eosinophils # (auto) 0.01 K/uL (0.00-0.50); Eosinophils % (auto) 0.1 %; Hematocrit (blood only) 39.6 % (42.0-52.0); Hemoglobin 13.4 g/dl (14.0-18.0); Immature Granulocytes # (auto) 0.03 K/uL (0.01-0.20); Immature Granulocytes % (auto) 0.3 %; Lymphocytes # (auto) 1.59 K/uL (1.20-3.40); Lymphocytes % (auto) 13.7 %; Mean Corpuscular Hemoglobin 30.2 pg (25.0-34.0); Mean Corpuscular Hgb Conc 33.8 g/dL (32.0-36.0); Mean Corpuscular Volume 89.2 fL (80.0-100.0); Monocytes # (auto) 0.89 K/uL (0.11-0.59); Monocytes % (auto) 7.7 %; Neutrophils # (auto) 9.02 K/uL (1.40-6.50); Neutrophils % (auto) 77.9 %; Platelet Count 211 K/uL (130-400); RDW Coefficient of Variation 12.7 % (11.5-14.5); RDW Standard Deviation 41.5 fL (36.4-46.3); Red Blood Count 4.44 M/uL (4.70-6.10); White Blood Count 11.57 K/ul (4.8-10.8)
[2023-11-09 06:47] LABS: BUN Creatinine Ratio 22.2 (10-20); Calcium 8.3 mg/dl (8.6-10.3); Creatinine Clr Calc Pharmacy 73.1 ml/min; Est GFR (African American) 105.8 ml/min; Est GFR (Non-African American) 91.3 ml/min; Potassium 4.6 mmol/L (3.5-5.1)
--- NOTE | 2023-11-09 09:29 | Surgery Progress Note ---
Date of Service November 09, 2023 Assessment & Plan (1) Small bowel obstruction: Plan: POD#1 diagnostic laparoscopy with release of SBO, single adhesive band lysed WBC 11.6, Hbg 13. Vitals stable NGT in place, 150cc documented since OR Patient feels much better, some expected surgical discomfort, but is managed with tylenol Abdomen soft, non distended,and incisions c/d/i He reports passing flatus, will d/c NGT and start clears ambulation and pulm toilet encouraged Admission and Anticipated Discharge Date Admission Date: November 08, 2023 Supervising Physician Co-Signing Physician Notes Patient seen and examined, agree with above. POD #1 laparoscopic lysis of adhesions for small bowel obstruction. Feeling much better, passing flatus. On exam afebrile with stable vitals. Abdomen soft, nondistended, nontender. Incisions healing well. Labs unremarkable. NG tube removed on rounds this morning and advance to clear liquid tolerated, we will advance to full liquids and possibly low fiber diet. Potential discharge this afternoon or tomorrow. Wound care instructions, activity restrictions, return precautions given Subjective Patient feels well. Some expected post op discomfort, but the pain he came in with is gone. He is passing gas. No BM yet. Some discomfort from NGT. Physical Exam Physical Exam: awake/alert, no distress Respiratory: normal respiratory effort Gastrointestinal (Abdomen): Inspection/Auscultation: + abdominal surgical incision (c/d/i with skin glue) Percussion/Palpation: + abdomen tender (expected dariela incisional discomfort) and abdomen soft Results & Data Vital Signs (Past 12 Hours) Vital Signs Temp Pulse Resp BP Pulse Ox O2 Del Method 11/09/23 07:21 98.2 F 61 16 131/70 98 Room Air 11/09/23 04:30 98.1 F 64 16 103/58 L 96 Room Air 11/09/23 00:24 98.1 F 59 L 16 138/75 97 Room Air PG Care Time/CCT Total # of Minutes Spent Total Time Spent with Patient: Total time spent is greater than 50% in coordination of care (as documented) at patient's floor/unit and/or counseling patient: Coding Level of Care Code 81491 Post Operative Follow-Up Diagnoses Small bowel obstruction K56.609
[2023-11-09 15:25] VITALS: BP 128/69; PULSE 95; TEMP 98.1; O2SAT 95
--- NOTE | 2023-11-10 05:30 | Electrocardiogram Report ---
Test Reason : Blood Pressure : */* mmHG Vent. Rate : 44 BPM Atrial Rate : 44 BPM P-R Int : 172 ms QRS Dur : 96 ms QT Int : 440 ms P-R-T Axes : 58 -19 38 degrees QTcB Int : 376 ms Marked sinus bradycardia Abnormal ECG No previous ECGs available Confirmed by Ed Pan ([id number]) on 11/10/2023 5:29:44 AM Referred By: Confirmed By: Ed Pan
--- NOTE | 2023-11-16 08:49 | Discharge Summary ---
Date of Service November 09, 2023 Admission HPI Per Admitting Provider This is a 68y yazdanism male with apparently no significant PMH who presents to the [facility] ED on 11/07 with complaints of acute onset severe abdominal pain. His pain started last night around midnight in generalized abdomen. This was associated with nausea, no vomiting. Due to the severity of his pain, which he rated a 10/10 in severity at its worst, he presented to the ER for evaluation. A CT a/p was performed that revealed small bowel obstruction where there appears to be both proximal and distal transition points within the dilated loops of small bowel at the left lower quadrant with surrounding mesenteric edema. Therefore, this is concerning for a closed loop type small bowel obstruction. The patient denies any prior abdominal surgical history. He is not passing flatus. Denies anything to eat recently outside of some sips of water. BMs normally regular. Principal Diagnosis small bowel obstruction Discharge Exam awake/alert, no distress Respiratory normal respiratory effort Gastrointestinal (Abdomen) Inspection/Auscultation: + abdominal surgical incision (c/d/i with dermabond); abdomen not distended Percussion/Palpation: + abdomen tender (expected dariela incisional discomfort to palpation) and abdomen soft Discharge Data Allergies Allergy/AdvReac Type Severity Reaction Status Date / Time No Known Allergies Allergy Unverified 11/08/23 11:31 Consultations 11/08/23 10:50 ED Decision to Admit Stat 11/08/23 12:02 Consult Hospitalist Routine Procedures Performed Operation Date: 11/08/23 08:20 Actual Procedures p Diagnostic Laparoscopy, Lysis of Adhesions(Not Applicable) - Austin Solo, , FACS Ordered Studies 11/08/23 06:33 CT abd pelvis IV con only Stat Hospital Course (1) Small bowel obstruction: This is a 68yM with no significant PMH who presented to the [facility] ED on 11/08/23 with complaints of abdominal pain. Workup with a CT a/p revealed findings concerning for a possible closed loop small bowel obstruction. On exam patient is uncomfortable appearing with tenderness throughout the abdomen. After evaluation of the patient and review of imaging, options discussed with patient and it was decided to proceed with surgical intervention for evaluation and management. Patient agreeable with the plan and kept NPO with IVF and an NGT was inserted. The patient went to the OR with Dr. Solo and underwent a diagnostic laparoscopic with release of adhesive band causing SBO. The patient tolerated the procedure well, see op note for full details. The patient recovered in the PACU and transferred to the med/surg unit in stable condition with NGT and IVF. POD#1 patient feeling much improved and he started passing flatus. Pain controlled. The NGT was removed and his diet was slowly advanced from liquids to low fiber without issues. As he was doing well the patient was deemed stable for discharge to home on the evening of POD#1. He was instructed to follow up in the office within 2 weeks for a post op check. Total Time Total Time Spent Total Time Spent (In Minutes): 15 Discharge Plan Discharge Items Patient Disposition: Home - Self-Care Reason For Visit: Abdominal Pain Discharge Diagnosis: diagnostic laparoscopy release of small bowel obstruction Activity: Per Instructions section Lifting Comment: no more than 20 lbs Bathing Comment: may shower; no soaking in tubs for 2 weeks Exercise/Sports: Wait until after follow-up appointment Non-emergency contact: Surgeon Call non-emergency contact if: you have any medication questions, your symptoms worsen, your pain is worsening, you have a fever, your temperature is above 101.5, your wound has increased redness, your wound has increased drainage and your wound pain has increased Follow-up/Referrals: Austin Solo DO, FACS [Physician] - (please call to schedule follow up in clinic within 2 weeks ) PCP,NO [Primary Care Provider] - Diet: Regular Addtl Attending Provider Instructions: You have skin glue over your incisions called dermabond. you may shower with this on. It will tend to dissolve and fall off within a couple weeks. Do not pick at the skin glue You may purchase Tylenol and/or Ibuprofen over the counter if needed for additional pain control over the next few days. Take per manufacturers instructions Pending Studies at Discharge: No Stand-Alone Forms: [address], Smoking Cessation Medications and DC Order Prescriptions: Continued multivitamin Tablet 1 tab PO DAILY Discharge Orders: Discharge Order (Routine); Ordered 11/09/23 Ordered By: Gilda Cox Admission Data Admit Date/Time: 11/08/23 12:58 Attending Provider: Austin Solo Admit Provider: Austin Solo Primary Care Provider: PCP,NO Other Providers: Austin Solo; Chad Bergman Other Interventions: Discharge Summary Assessment (RN) Last Done: 11/09/23 16:55 Coding Level of Care Code 20595 IN/OBS DISCH 30 MIN/LESS Diagnoses Small bowel obstruction K56.609
== END 2023-11-09 18:14 | disposition home or self-care (01) | DRG 358 ==
LOC: ED 06:29 → OR 11:24 → 3W 12:58
DX: Z87.891 Personal history of nicotine dependence; R82.4 Acetonuria; K56.50 Intestinal adhesions [bands], unspecified as to partial versus complete obstruction